=== PATIENT | female | born 1960 | race Caucasian/White ===

== ENCOUNTER 2024-01-24 05:23 | Outpatient (CLI) | payer MEDICAID, SELFPAY ==
[2024-01-24 12:56] LABS: ALT 26 U/L (14-59); AST 22 U/L (15-37); Albumin 3.8 g/dL (3.4-5.0); Alkaline Phosphatase 73 U/L (46-116); Anion Gap 8.5 mmol/L (3-11); BUN 14 mg/dL (7-18); Bilirubin, Total 0.3 mg/dL (0.2-1.0); CO2 29.5 mmol/L (21.0-32.0); CREATININE 0.8 mg/dL (0.55-1.02); Calculated LDL 178 mg/dL (<100); Chloride 103 mmol/L (98-107); Cholesterol 278 mg/dL (<200); Estimated GFR 82.74 (mL/min/1.73m2); Glucose 92 mg/dL (74-106); HDL Cholesterol 91 mg/dL (40-60); Potassium 4.2 mmol/L (3.5-5.1); Sodium 141 mmol/L (136-145); TSH (W/Ref FT4) 5.22 uIU/mL (0.36-3.74); Total Protein 7.4 g/dL (6.4-8.2); Triglyceride 49 mg/dL (<150)
[2024-01-24 14:27] LABS: FREE T4 0.83 ng/dL (0.76-1.46)
[2024-01-24 18:39] LABS: Hepatitis C Ab w Rflx HCV PCR Negative (Negative)
[2024-01-25 09:48] LABS: HIV-1/2 Ag & Ab Screen Negative (Negative)
== END 2024-01-24 05:24 | disposition home or self-care (01) ==
LOC: LOS 05:23
PROVIDERS: PCP Nurse Practitioner Family; Visit Provider Nurse Practitioner Family
DX: E03.9 Hypothyroidism, unspecified (principal); Z13.220 Encounter for screening for lipoid disorders; Z11.59 Encounter for screening for other viral diseases; Z11.4 Encounter for screening for human immunodeficiency virus [HIV]
CPT/HCPCS: 36415; 80053; 80061; 86803; 87389; 84439; 84443

== ENCOUNTER → 2024-02-06 01:49 | Outpatient (CLI) | payer MEDICAID, SELFPAY ==
--- NOTE | 2024-02-06 07:45 | DI.US_ITS ---
Exam(s) US BREAST LT COMPLETE MAMMO DIAGNOSTIC BI EXAM: MAMMO DIAGNOSTIC BI AND COMPLETE LEFT BREAST ULTRASOUND CLINICAL HISTORY: hx of abnormal mammogram,R92.8,F/U LT BREAST MASS. [place] TECHNIQUE: Both CC and MLO mammographic images of both breasts were obtained with 3D tomosynthesis t echnique and utilizing computer aided detection (CAD). Also performed spot compression 3D view of th e left breast. Complete left breast ultrasound was performed including all 4 quadrants, the retroareolar region, and the left axilla. COMPARISON: Prior outside [place] mammogram and ultrasound examinations from 2002 were reviewed. This patient underwent remote bilateral breast reduction surgery. She apparently has been feeling a small lump at approximately 6 o'clock position of the left breast. It has apparently not changed in size for over a year. FINDINGS: DIAGNOSTIC MAMMOGRAM: There has been no significant change in the appearance and distribution of the fibroglandular tissue. There are no new spiculated masses. Fibroglandular tissue pattern is unchanged. A density posteri anabel in left breast on the MLO view is noted which is subjected to additional spot compression view t antonino and this additional view renders this area less concerning and similar in appearance to the prio r mammogram. There is no new architectural distortion nor new skin thickening-retraction. COMPLETE LEFT BREAST ULTRASOUND: I note that both prior outside ultrasound examinations were limited targeted studies of approximately 11 o'clock position. Keeping that in mind..... On today's ultrasound the previously described 11 o'clock position nodule or hemorrhagic cyst appears unchanged, wider than taller and measuring approximately 5 by 3 mm. It exhibits neutral through tra nsmission. On today's study at the 2 o'clock position there is a similar appearing wider than taller 4 x 2 wilfredo meter hemorrhagic cyst or small benign-appearing nodule. At the 6 o'clock position (which is the area where she apparently has been feeling something for over a year) there are no significant ultrasound findings. No additional ultrasound findings in all 4 quadrants of the left breast. No significant left axillary adenopathy. IMPRESSION: 1. No radiographic evidence of malignancy in either breast. 2. Complete left breast ultrasound performed today reveals continued stability of the benign-appearin g finding seen at the 11 o'clock position of the left breast on prior outside [address] [place] [address] ultrasound ex aminations of December and June 2023. On today's ultrasound there is also an additional similar ward ign-appearing finding at 2 o'clock position. It is not known if this finding was previously present, as previously performed ultrasound examinations were limited targeted studies. In addition, there are no ultrasound or mammographic findings at the 6 o'clock position left breast which is where she clai ms to have been feeling something which is stable in size for the past year. Appropriate follow-up, as discussed by myself with the patient today, is repeat imaging in 6 months.. She should undergo repeat left breast ultrasound in 6 months and at that time I recommend so perform ing ultrasound of the opposite-right breast. The patient was informed of the findings and follow-up recommendations [facility] BI-RADS Category 3 - 6 month - Probably Benign Finding: Recommend follow-up mammography in 6 months Breast Density - Category B - Scattered areas of fibroglandular density Breast density Category C or D implies that the patient has dense breast tissue. Dense breast tissue can make it harder to find cancer on a mammogram. Dense breast tissue is also associated with an incr eased risk of breast cancer. This information about the result of the mammogram report was provided to the patient to raise their awareness. Use this report when you speak with the patient about their risks for breast cancer, which includes their family history. At that time, you may recommend additional screening tests (Ultrasoun d or MRI) as these tests may add significant information. A negative radiographic report should not delay biopsy if a dominant or clinically suspicious mass is present. Up to ten percent of cancers are not identified on mammography. A negative report may reinforce clinical impression. Adenosis and dense breasts may obscure an underlying neoplasm. False positive reports average 6 to 10%. Patient will receive a letter notifying them of these results.
--- NOTE | 2024-02-06 13:38 | DI.MAMMO_ITS ---
Exam(s) US BREAST LT COMPLETE MAMMO DIAGNOSTIC BI EXAM: MAMMO DIAGNOSTIC BI AND COMPLETE LEFT BREAST ULTRASOUND CLINICAL HISTORY: hx of abnormal mammogram,R92.8,F/U LT BREAST MASS. [place] TECHNIQUE: Both CC and MLO mammographic images of both breasts were obtained with 3D tomosynthesis t echnique and utilizing computer aided detection (CAD). Also performed spot compression 3D view of th e left breast. Complete left breast ultrasound was performed including all 4 quadrants, the retroareolar region, and the left axilla. COMPARISON: Prior outside [place] mammogram and ultrasound examinations from 2002 were reviewed. This patient underwent remote bilateral breast reduction surgery. She apparently has been feeling a small lump at approximately 6 o'clock position of the left breast. It has apparently not changed in size for over a year. FINDINGS: DIAGNOSTIC MAMMOGRAM: There has been no significant change in the appearance and distribution of the fibroglandular tissue. There are no new spiculated masses. Fibroglandular tissue pattern is unchanged. A density posteri anabel in left breast on the MLO view is noted which is subjected to additional spot compression view t antonino and this additional view renders this area less concerning and similar in appearance to the prio r mammogram. There is no new architectural distortion nor new skin thickening-retraction. COMPLETE LEFT BREAST ULTRASOUND: I note that both prior outside ultrasound examinations were limited targeted studies of approximately 11 o'clock position. Keeping that in mind..... On today's ultrasound the previously described 11 o'clock position nodule or hemorrhagic cyst appears unchanged, wider than taller and measuring approximately 5 by 3 mm. It exhibits neutral through tra nsmission. On today's study at the 2 o'clock position there is a similar appearing wider than taller 4 x 2 wilfredo meter hemorrhagic cyst or small benign-appearing nodule. At the 6 o'clock position (which is the area where she apparently has been feeling something for over a year) there are no significant ultrasound findings. No additional ultrasound findings in all 4 quadrants of the left breast. No significant left axillary adenopathy. IMPRESSION: 1. No radiographic evidence of malignancy in either breast. 2. Complete left breast ultrasound performed today reveals continued stability of the benign-appearin g finding seen at the 11 o'clock position of the left breast on prior outside [address] [place] [address] ultrasound ex aminations of December and June 2023. On today's ultrasound there is also an additional similar ward ign-appearing finding at 2 o'clock position. It is not known if this finding was previously present, as previously performed ultrasound examinations were limited targeted studies. In addition, there are no ultrasound or mammographic findings at the 6 o'clock position left breast which is where she clai ms to have been feeling something which is stable in size for the past year. Appropriate follow-up, as discussed by myself with the patient today, is repeat imaging in 6 months.. She should undergo repeat left breast ultrasound in 6 months and at that time I recommend so perform ing ultrasound of the opposite-right breast. The patient was informed of the findings and follow-up recommendations prior to leaving the [facility]. BI-RADS Category 3 - 6 month - Probably Benign Finding: Recommend follow-up mammography in 6 months Breast Density - Category B - Scattered areas of fibroglandular density Breast density Category C or D implies that the patient has dense breast tissue. Dense breast tissue can make it harder to find cancer on a mammogram. Dense breast tissue is also associated with an incr eased risk of breast cancer. This information about the result of the mammogram report was provided to the patient to raise their awareness. Use this report when you speak with the patient about their risks for breast cancer, which includes their family history. At that time, you may recommend additional screening tests (Ultrasoun d or MRI) as these tests may add significant information. A negative radiographic report should not delay biopsy if a dominant or clinically suspicious mass is present. Up to ten percent of cancers are not identified on mammography. A negative report may reinforce clinical impression. Adenosis and dense breasts may obscure an underlying neoplasm. False positive reports average 6 to 10%. Patient will receive a letter notifying them of these results.
== END ==
PROVIDERS: PCP Nurse Practitioner Family; Visit Provider Nurse Practitioner Family
DX: R92.8 Other abnormal and inconclusive findings on diagnostic imaging of breast (principal); N63.23 Unspecified lump in the left breast, lower outer quadrant; N60.12 Diffuse cystic mastopathy of left breast; R92.323 Mammographic fibroglandular density, bilateral breasts
CPT/HCPCS: 76642; 77062; 77066; G0279

== ENCOUNTER 2024-02-21 20:06 | Emergency (ER) | payer MEDICAID, SELFPAY ==
[2024-02-21] VITALS (41 sets, daily range): BP systolic 109–138; BP diastolic 48–75; PULSE 67–72; RESP 11–22; TEMP 36.6; O2SAT 95–100
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
--- NOTE | 2024-02-21 20:15 | DI.RAD_ITS ---
Exam(s) XR CHEST 2V PA LATERAL EXAM: XR CHEST 2V PA LATERAL CLINICAL HISTORY: SOB TECHNIQUE: 2D digital imaging was performed of the chest. Two images were obtained. PA and lateral views were obtained. COMPARISON: No exams were available for comparison FINDINGS: MEDIASTINUM: Normal. HEART: Normal. PULMONARY VASCULATURE: Normal. LUNGS: Clear. PLEURAL SPACE: No pleural effusion or pneumothorax. BONE:Within normal limits for the patient's age. OTHER FINDINGS:Normal. IMPRESSION: No acute pulmonary findings. DATA REPOSITORY: RADIATION DOSE DELIVERED:
[2024-02-21] MEDS: predniSONE 20 MG TAB 60 MG PO (20:23)
[2024-02-21] MEDS: Albuterol/Ipratropium 3 ML UPD VIAL UPD (20:23)
--- NOTE | 2024-02-21 21:22 | DI.VRAD_ITS ---
PROCEDURE INFORMATION: Exam: XR Chest Exam date and time: 02/21/2024 20:44 Age: 64 years old Clinical indication: Shortness of breath; Additional info: SOB TECHNIQUE: Imaging protocol: Radiologic exam of the chest. Views: 2 views. COMPARISON: No relevant prior studies available. FINDINGS: Lungs: Mild hyperinflation without airspace consolidation. Pleural spaces: No pleural effusion. No pneumothorax. Heart/Mediastinum: No cardiomegaly. Bones/joints: No acute fracture. IMPRESSION: Mild hyperinflation without airspace consolidation. Dictated and Authenticated by: Ludmila Prince MD. Ordering:CATHLEEN Molina MD
== END 2024-02-21 21:35 | disposition home or self-care (01) ==
PROVIDERS: Emergency Provider Emergency Medicine; PCP Nurse Practitioner Family
DX: J45.901 Unspecified asthma with (acute) exacerbation; Z79.899 Other long term (current) drug therapy; E03.9 Hypothyroidism, unspecified; F41.9 Anxiety disorder, unspecified
CPT/HCPCS: 94640; 99283; 71046; 99284; J7512; J7620

== ENCOUNTER 2024-04-22 05:00 | Emergency (ER) | payer MEDICAID, SELFPAY ==
--- NOTE | 2024-04-22 05:00 | DI.RAD_ITS ---
Exam(s) XR CHEST 2V PA LATERAL EXAM: XR CHEST 2V PA LATERAL CLINICAL HISTORY: SOB, cough TECHNIQUE: 2D digital imaging was performed. Two views. COMPARISON: CR,XR XR CHEST 2V PA LATERAL from 02/21/2024 FINDINGS: HEART: Normal size. Aorta: Not dilated. PULMONARY VASCULATURE: Normal. LUNGS: Clear. PLEURAL SPACE: No pleural effusion or pneumothorax. BONE:Unremarkable for age. Soft tissues: Unremarkable. IMPRESSION: No acute abnormality. DATA REPOSITORY: RADIATION DOSE DELIVERED:
[2024-04-22 05:02] VITALS: BP 104/54; PULSE 72; RESP 18; TEMP 36.7; O2SAT 98
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
[2024-04-22] MEDS: predniSONE 20 MG TAB 60 MG PO (05:19)
[2024-04-22 05:22] VITALS: PULSE 72; RESP 18; RESP 5; RESP 6; RESP 8; O2SAT 100
[2024-04-22] MEDS: Albuterol/Ipratropium 3 ML UPD VIAL UPD (05:22)
--- NOTE | 2024-04-22 06:02 | DI.VRAD_ITS ---
PROCEDURE INFORMATION: Exam: XR Chest Exam date and time: 04/22/2024 5:41 AM Age: 64 years old Clinical indication: Cough and shortness of breath; Patient HX: SOB, cough TECHNIQUE: Imaging protocol: Radiologic exam of the chest. Views: 2 views. COMPARISON: CR XR CHEST 2V PA LATERAL 02/21/2024 8:44 PM FINDINGS: Lungs: Unremarkable. No consolidation. Pleural spaces: Unremarkable. No pleural effusion. No pneumothorax. Heart/Mediastinum: Unremarkable. No cardiomegaly. Bones/joints: Unremarkable. IMPRESSION: No acute findings. Dictated and Authenticated by: Gume Kaur MD. Ordering:CATHLEEN Molina MD
[2024-04-22 06:17] VITALS: BP 105/74; PULSE 83; RESP 18; TEMP 36.7; O2SAT 100
== END 2024-04-22 06:17 | disposition home or self-care (01) ==
LOC: ER 06:25
PROVIDERS: Emergency Provider Emergency Medicine; PCP Nurse Practitioner Family
DX: J45.901 Unspecified asthma with (acute) exacerbation (principal)
CPT/HCPCS: 94640; 99284; 71046; 99283; J7512; J7620

== ENCOUNTER 2024-08-07 00:56 | Outpatient (CLI) | payer MEDICAID, SELFPAY ==
--- NOTE | 2024-08-07 07:00 | DI.US_ITS ---
Exam(s) US BREAST LT LIMITED EXAM: US BREAST LT LIMITED CLINICAL HISTORY: 6 month f/u inconclusive mammo,Z09,ENCOUNTER FOR FOLLOW UP, LT FINDING TECHNIQUE: Ultrasound left breast performed using standard protocol. Targeted ultrasound follow-up previously noted lesions. COMPARISON: MG MAMMO SCREENING BREAST TOMOSYNTHESIS BILATERAL W CAD from 12/06/2022 US US BREAST LIMITED/TARGETED LT from 12/26/2022 US US BREAST LIMITED/TARGETED LT from 06/08/2023 US US BREAST LT COMPLETE from 02/06/2024 MG MG MAMMO DIAGNOSTIC BI from 02/06/2024 FINDINGS: Stable appearance circumscribed ovoid hypoechoic lesion in the 11 o'clock position 3 cm from the nipp le measuring 5 x 3 x 6 millimeters. 2 x 3 x 2 millimeter hypoechoic lesion in the 2 o'clock position 3 cm from the nipple, also unchanged. Findings likely represent small proteinaceous cysts. No suspicious solid or cystic masses, hypoechoic foci, areas of abnormal shadowing, or areas of skin thickening. IMPRESSION: No sonographically suspicious finding. BI-RADS Category 2 - Benign Findings Recommend bilateral screening mammography in February 2025. DATA REPOSITORY:
== END 2024-08-07 01:16 ==
LOC: DI 00:56
PROVIDERS: PCP Nurse Practitioner Family; Visit Provider Nurse Practitioner Family
DX: Z09 Encounter for follow-up examination after completed treatment for conditions other than malignant neoplasm (principal); R92.8 Other abnormal and inconclusive findings on diagnostic imaging of breast
CPT/HCPCS: 76642

== ENCOUNTER 2024-10-13 14:48 | Emergency (ER) | payer MEDICAID, SELFPAY ==
[2024-10-13] VITALS (25 sets, daily range): BP systolic 111–147; BP diastolic 60–83; PULSE 50–69; RESP 8–23; TEMP 36.4; O2SAT 97–100
--- NOTE | 2024-10-13 14:45 | DI.RAD_ITS ---
Exam(s) XR CHEST 2V PA LATERAL EXAM: XR CHEST 2V PA LATERAL CLINICAL HISTORY: Chest pain TECHNIQUE: 2D digital imaging was performed. Two views. COMPARISON: No exams were available for comparison FINDINGS: HEART: Normal size. Aorta: Not dilated. PULMONARY VASCULATURE: Normal. MEDIASTINUM: Unremarkable. LUNGS: Clear. PLEURAL SPACE: No pleural effusion or pneumothorax. BONE:Unremarkable for age. Degenerative changes in the thoracic spine. SOFT TISSUES: Unremarkable. IMPRESSION: No acute abnormality. DATA REPOSITORY: RADIATION DOSE DELIVERED:
--- NOTE | 2024-10-13 14:45 | RT.EKG_ITS ---
APPROVED REPORT Exam: Resting ECG Reason for Exam: chest pain Patient Location: E HR:57 bpm ECG Measurements Heart Rate 57 AXIS [place] 184 P 50 QRSd 72 QRS 64 QT 409 T 60 QTc 400 Conclusion Sinus bradycardia 57 normal axis no stemi
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
[2024-10-13 16:04] LABS: Abs Immature Grans 0.02 10^3/uL (0.0-0.06); Absolute Basophil Count 0.07 10^3/uL (0.0-0.2); Absolute Eosinophil Count 0.52 10^3/uL (0.0-0.7); Absolute Monocyte Count 0.39 10^3/uL (0.1-0.8); Absolute Neutrophil Count 3.19 10^3/uL (1.2-6.7); Basophils % 1.1 %; Eosinophils % 8.5 %; HCT 35.8 % (36.0-46.0); HGB 12.3 g/dL (11.2-15.7); Immature Grans % 0.3 %; Lymphocytes % 31.2 %; MCHC 34.4 % (32.0-36.0); MCV 93 fL (80-95); Monocytes % 6.4 %; Neutrophils % 52.5 %; Platelet Count 239 10^3/uL (130-400); RBC 3.84 10^6/uL (3.93-5.22); RDW-SD 44.5 fL; WBC 6.09 10^3/uL (4.4-10.8)
[2024-10-13 16:13] LABS: ALT 33 U/L (14-59); AST 23 U/L (15-37); Alkaline Phosphatase 66 U/L (46-116); Anion Gap 8.7 mmol/L (3-11); BUN 11 mg/dL (7-18); Bilirubin, Total 0.25 mg/dL (0.2-1.0); CO2 28.3 mmol/L (21.0-32.0); CREATININE 0.8 mg/dL (0.55-1.02); Calcium 9.2 mg/dL (8.5-10.1); Chloride 101 mmol/L (98-107); Estimated GFR 82.74 (mL/min/1.73m2); Glucose 76 mg/dL (74-106); Magnesium 2.1 mg/dL (1.8-2.4); Potassium 3.5 mmol/L (3.5-5.1); Sodium 138 mmol/L (136-145); Total Protein 7.6 g/dL (6.4-8.2); Troponin I < 4 ng/L (<or=51)
--- NOTE | 2024-10-13 17:01 | DI.VRAD_ITS ---
PROCEDURE INFORMATION: Exam: XR Chest Exam date and time: 10/13/2024 3:48 PM Age: 64 years old Clinical indication: Other: Chest pain TECHNIQUE: Imaging protocol: Radiologic exam of the chest. Views: 2 views. COMPARISON: CR XR CHEST 2V PA LATERAL 04/22/2024 5:41 AM FINDINGS: Lungs: The lungs are hyperinflated, consistent with underlying small airways disease. There is no evidence of focal pulmonary consolidation. The pulmonary vasculature is normal. Pleural spaces: There is no evidence of pneumothorax. There are no pleural effusions present. Heart/Mediastinum: The cardiac silhouette is within normal limits. The mediastinum is normal. Bones/joints: The spine, sternum, ribs, and pectoral girdles show no evidence of acute abnormality Soft tissues: There are no soft tissue masses or calcifications. IMPRESSION: 1. The lungs are hyperinflated, consistent with underlying small airways disease. 2. Otherwise, no definitive explanation for patient's current clinical presentation elicited on this study. Dictated and Authenticated by: Venkat Mott MD. Ordering:ALLYSSA Crocker MD
[2024-10-13 17:05] LABS: Troponin I < 4 ng/L (<or=51)
--- NOTE | 2024-10-14 07:16 | NUR.NOTE ---
in chart to check status of ECGNursing Note:
== END 2024-10-13 17:28 | disposition home or self-care (01) ==
PROVIDERS: Emergency Provider Emergency Medicine; PCP Nurse Practitioner Family
DX: R07.9 Chest pain, unspecified (principal); R00.1 Bradycardia, unspecified; E78.5 Hyperlipidemia, unspecified; Z63.8 Other specified problems related to primary support group
CPT/HCPCS: 80053; 93005; 99285; 71046; 83735; 84484; 85025; 93010; 99284

== ENCOUNTER 2024-12-09 17:53 | Outpatient (REF) | payer MEDICAID, SELFPAY | END 2024-12-09 17:54 | disposition home or self-care (01) | LOC: LBN 17:53 | PROVIDERS: PCP Nurse Practitioner Family; Visit Provider Nurse Practitioner Family | DX: N39.0 Urinary tract infection, site not specified (principal); B96.29 Other Escherichia coli [E. coli] as the cause of diseases classified elsewhere; R82.89 Other abnormal findings on cytological and histological examination of urine | CPT/HCPCS: 87077; 87086; 87186 ==

== ENCOUNTER 2025-01-13 16:35 | Outpatient (REF) | payer MEDICAID, SELFPAY ==
[2025-01-13 22:20] LABS: TSH (W/Ref FT4) 4.11 uIU/mL (0.36-3.74)
[2025-01-14 18:29] LABS: T4, Free 0.8 ng/dL (0.8-2.2)
[2025-01-14 20:27] LABS: HIV-1/2 Ag & Ab Screen Negative (Negative)
[2025-01-14 20:33] LABS: Hepatitis C Ab w Rflx HCV PCR Negative (Negative)
[2025-01-14 20:38] LABS: HBs Antibody, Quant <3.1 mIU/mL (See Note); Hep B Surface Ab Negative (See Note); Hepatitis B Core Antibody Negative (Negative); Hepatitis B Surface Antigen Negative (Negative)
== END 2025-01-13 16:36 | disposition home or self-care (01) ==
LOC: LBN 16:35
PROVIDERS: PCP Nurse Practitioner Family; Visit Provider Nurse Practitioner Family
DX: Z11.59 Encounter for screening for other viral diseases (principal); E03.9 Hypothyroidism, unspecified; Z11.4 Encounter for screening for human immunodeficiency virus [HIV]; J45.909 Unspecified asthma, uncomplicated
CPT/HCPCS: 86704; 86706; 86803; 87340; 87389; 84439; 84443

== ENCOUNTER 2025-02-17 00:56 | Outpatient (CLI) | payer MEDICAID, SELFPAY ==
--- NOTE | 2025-02-17 07:45 | DI.MAMMO_ITS ---
Exam(s) MAMMO SCREENING EXAM: MAMMO SCREENING CLINICAL HISTORY: screening,Z12.39. TECHNIQUE: Bilateral full field digital CC and MLO mammographic images were obtained with 3D tomosyn thesis and utilizing computer aided detection (CAD). COMPARISON: Prior mammograms were reviewed. Ultrasound of August 2024 also reviewed. FINDINGS: There has apparently been prior bilateral reduction surgery There has been no significant change in the appearance and distribution of the fibroglandular tissue. There are no new spiculated masses nor malignant appearing microcalcification groups. Scattered benign-appearing micro and macro calcifications are again noted. There is no significant architectural distortion nor skin thickening-retraction. IMPRESSION: No radiographic evidence of malignancy. BI-RADS Category 2 - Benign Findings Breast Density - Category B - Scattered areas of fibroglandular density Breast density Category C or D implies that the patient has dense breast tissue. Dense breast tissue can make it harder to find cancer on a mammogram. Dense breast tissue is also associated with an incr eased risk of breast cancer. This information about the result of the mammogram report was provided to the patient to raise their awareness. Use this report when you speak with the patient about their risks for breast cancer, which includes their family history. At that time, you may recommend additional screening tests (Ultrasoun d or MRI) as these tests may add significant information. A negative radiographic report should not delay biopsy if a dominant or clinically suspicious mass is present. Up to ten percent of cancers are not identified on mammography. A negative report may reinforce clinical impression. Adenosis and dense breasts may obscure an underlying neoplasm. False positive reports average 6 to 10%. Patient will receive a letter notifying them of these results.
== END 2025-02-17 01:16 ==
LOC: DI 00:56
PROVIDERS: PCP Nurse Practitioner Family; Visit Provider Nurse Practitioner Family
DX: Z12.31 Encounter for screening mammogram for malignant neoplasm of breast (principal); R92.323 Mammographic fibroglandular density, bilateral breasts
CPT/HCPCS: 77063; 77067